=== PATIENT | female | born 1980 | race Caucasian/White ===

== ENCOUNTER 2019-01-05 13:27 | Outpatient (CLI) | payer SELFPAY ==
--- NOTE | 2019-01-05 13:15 | DI.RAD_ITS ---
SYMPTOMS/DIAGNOSIS: LEFT HAND PAIN X MOS, M79.642, LEFT POINTER PAIN X WEEKS LEFT HAND: There is no evidence of fracture. The joint spaces are well maintained. There are no significant degenerative changes. The bones are normally mineralized. No soft tissue calcifications or foreign bodies are seen. IMPRESSION: Negative left hand.
== END 2019-01-05 13:47 ==
PROVIDERS: PCP Nurse Practitioner; Visit Provider Nurse Practitioner
DX: M79.642 Pain in left hand (principal); M79.645 Pain in left finger(s)
CPT/HCPCS: 73130

== ENCOUNTER 2019-12-30 03:54 | Outpatient (CLI) | payer SELFPAY ==
[2019-12-30 14:37] LABS: Abs Immature Grans 0.06 10^3/uL (0.0-0.06); Absolute Lymphocyte Count 3.81 10^3/uL (1.2-3.4); Absolute Neutrophil Count 8.92 10^3/uL (1.2-6.7); Basophils % 0.4; Eosinophils % 1.8; HCT 43.2 % (36.0-46.0); HGB 14.6 g/dL (11.2-15.7); Immature Grans % 0.4; MCH 30.8 pg (27.0-33.0); MCHC 33.8 % (32.0-36.0); MCV 91.1 fL (80-95); MPV 9.7 fL (8.0-11.0); Monocytes % 7.2; Neutrophils % 63.2; Nucleated RBC 0 %; Platelet Count 331 10^3/uL (130-400); RBC 4.74 10^6/uL (3.93-5.22); RDW 12.5 % (11.7-14.6); RDW-SD 41.1 fL; WBC 14.11 10^3/uL (4.4-10.8)
[2019-12-30 14:39] LABS: Absolute Basophil Count 0.06 10^3/uL (0.0-0.2); Absolute Eosinophil Count 0.25 10^3/uL (0.0-0.7); Absolute Monocyte Count 1.02 10^3/uL (0.1-0.8)
== END 2019-12-30 04:14 ==
PROVIDERS: PCP Nurse Practitioner; Visit Provider Family Medicine
DX: R23.8 Other skin changes (principal)
CPT/HCPCS: 36415; 85025

== ENCOUNTER 2020-01-02 01:43 | Outpatient (CLI) | payer SELFPAY ==
--- NOTE | 2020-01-02 08:30 | DI.US_ITS ---
EXAM: US SOFT TISSUE EXTREMITY CLINICAL HISTORY: R/O hematoma, LT SHOULDER PAIN, M25.512. TECHNIQUE: Ultrasound was performed using standard protocol. COMPARISON: No exams were available for comparison FINDINGS: Sonographic assessment utilizing grayscale and color Doppler imaging was performed and targeted to th e area of clinical concern. Sonographically, no cystic or solid mass is seen in the soft tissues around the left shoulder. IMPRESSION: Negative ultrasound examination. No sonographic findings to suggest a hematoma. DATA REPOSITORY:
== END 2020-01-02 02:03 ==
PROVIDERS: PCP Nurse Practitioner; Visit Provider Family Medicine
DX: M25.512 Pain in left shoulder (principal)
CPT/HCPCS: 76881

== ENCOUNTER 2020-01-03 20:08 | Emergency (ER) | payer SELFPAY ==
[2020-01-03 20:17] VITALS: BP 133/78; PULSE 92; RESP 16; TEMP 36.8; O2SAT 98
--- NOTE | 2020-01-03 21:27 | W.ED.GENAD ---
Discharge Plan Disposition Patient Disposition: HOME Condition: Good Discharge Details Chief Complaint: Laceration Clinical Impression: Laceration of finger nail bed Primary Care Provider: Rosemary Torres ED Provider: Kayli Breen Home Meds and New Rx's Prescriptions: No Action No Known Home Meds RF: 0 Discharge Instructions Instructions: Finger Laceration (ED) Additional Instructions: Please keep your wound clean, dry, covered. Please keep the current dressing on for the next 24 hours. After that time, he may cover with a Band-Aid and then apply brace. Tylenol and ibuprofen as needed for discomfort. Please monitor for signs of infection bleeding redness, warmth, drainage, increased pain, fever/chills. If you develop these other new/worsening symptoms please seek care urgently once again. Otherwise, stitches should come out on their own in the next week. Please follow-up with primary care as needed. Referrals: Rosemary Torres, VB NET DEVELOPER [Primary Care Provider] - Discharge Data Discharge Date/Time-TO BE ENTERED AT DEPARTURE: 01/03/20 21:35 Medical Decision Making Patient is a pleasant [id number] 39-year-old female presented with chief complaint of laceration to the right middle finger. She reports a few hours prior to arrival she was working on a lawnmower when she slipped and her hand struck the blade. Denies any sensory deficits. Patient and I discussed risks/benedifs as well as expected procedural steps of closure. She voices udnertandind and wishes to proceed. Please see procedure note. This was completed using standard, sterile technique. Wound explored to base in a bloodless field. No FB or debris noted, deep structures intact. We discussed wound care in depth. Last tetanus was 2017. She will return in one week for wound check and suture removal. All of her questions and conerns were addressed, she is in agreemnt with this plan. HPI General Mode of arrival: ambulatory. Date/Time Provider Initiated Documentation: 01/03/20 21:27. Limitations to Documentation: no limitations. Information obtained by: patient and RN notes reviewed. History of Present Illness 39 year old F presents to the emergency department with the chief complaint of right middle finger laceration, described as severe, with intensity rated at 8. Quality is described as sharp, and is localized to the right and upper extremity. Patient reports no radiation. Patient started experiencing this hour(s) (3) and it has been constant. Immobilization improves symptom(s), Movement worsens symptoms . Patient notes no other symptoms.. Patient did receive the following treatments prior to arrival, none Related Data Home Medications Medication Instructions Recorded Confirmed Unknown [No Known Home Meds] 01/05/19 12/29/19 Allergies Allergy/AdvReac Type Severity Reaction Status Date / Time oxycodone HCl [From Percocet] AdvReac vomiting Verified 01/03/20 20:21 General Stated Complaint: Laceration REBA: 4 Review of Systems Constitutional Constitutional: Reports as per HPI, Denies chills and Denies fever(s) Musculoskeletal Musculoskeletal: Reports as per HPI Integumentary/Breasts Skin/Breast: Reports as per HPI Neurologic Neurologic: Reports as per HPI, Denies sensory deficit and Denies paresthesias [facility] Medical History Factor V Lieden (06/03/01) Fibromyalgia (Acute) Surgical History Cholecystectomy (06/03/03) Family History Mother No problems noted. Father Essential hypertension Social History Smoking/Tobacco Use Status: Never Alcohol Intake: never Drug use: Never Substance use type: does not use Do you feel safe at home: Yes Do you feel safe in your relationship?: Yes Exam Const General: cooperative, healthy appearing, comfortable, no acute distress and well developed Nutritional Appearance: average body habitus and well nourished Orientation: alert and awake Resp Effort & Inspection: normal respiratory effort, able to speak in complete sentences and no respiratory distress Cardio Rate: regular rate Rhythm: regular rhythm Skin Trauma: laceration Neuro General: patient alert and patient awake Cognition: normal cognition Speech: speech normal Gait: normal gait Sensory Exam: no sensory deficits noted Extrem Hand/finger images: 1. laceration through nail, nail is well approximated. Sensation intact. Good capillary refill. Nail easily comes up at the area of trauma, bleeding begins. Psych Appearance: grossly normal and well kempt Mental Status: mental status grossly normal Speech and Movement: speech and movement normal Course Vital Signs Vital signs: Vital Signs Temperature 36.8 C 09/01/20 20:17 Pulse 92 H 01/03/20 20:17 Respiratory Rate 16 01/03/20 20:17 Blood Pressure 133/78 01/03/20 20:17 Pulse Oximetry 98 01/03/20 20:17 Temperature 36.8 C 01/03/20 20:17 Temperature Source Skin 01/03/20 20:17 Pulse 92 H 01/03/20 20:17 Respiratory Rate 16 01/03/20 20:17 Respiratory Effort Non-Labored 01/03/20 20:29 Blood Pressure 133/78 01/03/20 20:17 Blood Pressure Position Supine 01/03/20 20:17 Pulse Oximetry 98 01/03/20 20:17 Oxygen Delivery Method Room Air 01/03/20 20:17 Oxygen Flow Rate 0 01/03/20 20:17 Pain Level 8 01/03/20 20:29 Procedures Laceration Laceration 1: Site: hand Size (cm): 1 Description: linear Depth: simple, single layer Local Anesthetic: Lidocaine 1% Amount of anesthesia used (mL): 5 Pre-repair: wound explored, irrigated extensively and deep structures intact Skin layer closed with: other (monocryl) Size (cm): 6-0 Number of sutures: 2 Technique: simple, interrupted
[2020-01-03] MEDS: Ibuprofen 600 MG TAB (21:34)
[2020-01-03] MEDS: Acetaminophen 500 MG TAB (21:34)
[2020-01-03 21:36] VITALS: PULSE 86; RESP 16; O2SAT 100
== END 2020-01-03 21:35 | disposition home or self-care (01) ==
PROVIDERS: Emergency Provider Physician Assistant; PCP Nurse Practitioner
DX: S61.312A Laceration without foreign body of right middle finger with damage to nail, initial encounter (principal); W27.1XXA Contact with garden tool, initial encounter
CPT/HCPCS: 12001

== ENCOUNTER 2020-01-21 21:34 | Emergency (ER) | payer SELFPAY ==
--- NOTE | 2020-01-21 21:37 | W.ED.GENAD ---
Discharge Plan Disposition Patient Disposition: HOME Condition: Good Discharge Details Clinical Impression: Right ankle sprain Primary Care Provider: Rosemary Torres ED Provider: Nicolas House Home Meds and New Rx's Prescriptions: New ibuprofen 600 mg tablet 600 mg PO Q8H PRNQty: 15 RF: 0 Discharge Instructions Instructions: Ankle Sprain (ED) Additional Instructions: X-ray does not reveal any fracture or dislocation. Wear the walking boot until follow-up with orthopedics. Call orthopedics for follow-up in 1 to 2 weeks. Ice, elevation for the next few days. Ibuprofen as needed for pain. Return to ED if problems. Referrals: [facility] [Provider Group] Medical Decision Making Patient took Advil and Tylenol before coming in. Will obtain x-ray of the right ankle. 22:00 - X-ray negative per my review and interpretation. Patient will be placed in a walking boot and made weightbearing as tolerated. Ice, elevation, ibuprofen. Follow-up with orthopedics in 1 to 2 weeks. Return to ED if problems. HPI General Mode of arrival: EMS. Date/Time Provider Initiated Documentation: 01/21/20 21:37. Limitations to Documentation: no limitations. Information obtained by: patient and RN notes reviewed. HPI Narrative: Patient presents to ED with right ankle [place]. She has pain in the right lateral ankle only. Has numbness and burning in the area of swelling only. Denies any other injury. Specifically, no foot or knee pain. Related Data Home Medications Medication Instructions Recorded Confirmed ibuprofen 600 mg PO Q8H PRN #15 tab 01/21/20 Previous Rx's Medication Instructions Recorded ibuprofen 600 mg PO Q8H PRN #15 tab 01/21/20 Allergies Allergy/AdvReac Type Severity Reaction Status Date / Time oxycodone HCl [From Percocet] AdvReac vomiting Verified 01/21/20 21:48 General REBA: 4 Review of Systems Constitutional Constitutional: Denies fever(s) and Denies weakness Cardiovascular Cardiovascular: Denies dyspnea Respiratory Respiratory: Denies cough and Denies dyspnea Musculoskeletal Musculoskeletal: Reports arthralgias, Reports joint swelling and Denies numbness Neurologic Neurologic: Denies numbness and Denies weakness [facility] Medical History (Updated 01/21/20 @ 22:05 by Nicolas House MD) Factor V Lieden (06/03/01) Fibromyalgia Surgical History Cholecystectomy (06/03/03) Family History Mother No problems noted. Father Essential hypertension Social History Smoking/Tobacco Use Status: Never Alcohol Intake: never Drug use: Never Substance use type: does not use Do you feel safe at home: Yes Do you feel safe in your relationship?: Yes Exam Const General: cooperative, comfortable and no acute distress Orientation: alert and oriented x3 HENIA Head: normocephalic and atraumatic Neck Neck: trachea midline and supple Resp Effort & Inspection: normal respiratory effort Skin Trauma: no lacerations or abrasions Wounds: no wounds Neuro General: patient alert, patient oriented x3 and no focal motor deficits Cranial Nerves: CN's II-XI intact bilaterally Extrem Other: Right ankle with significant swelling and tenderness to the lateral malleolus. Medial malleolus normal. Foot normal. Neurovascularly intact distally. No pain or tenderness to the proximal fibula.
[2020-01-21 21:42] VITALS: BP 138/87; PULSE 95; RESP 16; TEMP 37; O2SAT 98
--- NOTE | 2020-01-21 21:45 | DI.RAD_ITS ---
EXAM: XR ANKLE RT COMPLETE CLINICAL HISTORY: trauma. TECHNIQUE: 2D digital imaging was performed. COMPARISON: No exams were available for comparison FINDINGS: BONES: No acute fracture is present. No bony destructive lesion is seen. JOINTS: The ankle mortise is normally aligned. SOFT TISSUE: Soft tissue swelling laterally. IMPRESSION: No acute fracture or dislocation. Soft tissue swelling laterally. DATA REPOSITORY: RADIATION DOSE DELIVERED:
--- NOTE | 2020-01-21 21:59 | DI.VRAD_ITS ---
PROCEDURE INFORMATION: Exam: XR Right Ankle Exam date and time: 01/21/2020 9:54 PM Age: 39 years old Clinical indication: Pain; Ankle; Right; Patient HX: Trauma TECHNIQUE: Imaging protocol: XR Right ankle. Views: 3 or more views. COMPARISON: No relevant prior studies available. FINDINGS: Bones/joints: Normal. Soft tissues: Lateral soft tissue swelling. IMPRESSION: Lateral soft tissue swelling. Dictated and Authenticated by: Frank Gastelum MD. Ordering:JULIO Valenzuela MD
== END 2020-01-21 22:25 | disposition home or self-care (01) ==
PROVIDERS: Emergency Provider Emergency Medicine; PCP Nurse Practitioner
DX: S93.491A Sprain of other ligament of right ankle, initial encounter (principal); X50.9XXA Other and unspecified overexertion or strenuous movements or postures, initial encounter; Y93.01 Activity, walking, marching and hiking
CPT/HCPCS: 29515; 99283; 73610; L4361

== ENCOUNTER 2020-03-27 08:35 | Outpatient (CLI) | payer SELFPAY ==
[2020-03-29 19:42] LABS: Patient Race White; SARS-CoV-2 RNA Undetected (Undetected); SARS-CoV-2 Specimen Source Nasal
== END 2020-03-27 08:55 ==
PROVIDERS: PCP Nurse Practitioner; Visit Provider Nurse Practitioner
DX: R51.9 Headache, unspecified (principal); R09.81 Nasal congestion; M79.18 Myalgia, other site; Z11.59 Encounter for screening for other viral diseases
CPT/HCPCS: U0003

== ENCOUNTER 2020-05-17 16:55 | Outpatient (REF) | payer SELFPAY ==
[2020-05-18 21:38] LABS: COVID-19 RT-PCR UVMMC Result Negative (Negative)
== END 2020-05-17 17:15 ==
LOC: LBN 16:55
PROVIDERS: PCP Nurse Practitioner; Visit Provider Student in an Organized Health Care Education/Training Program
DX: Z11.52 Encounter for screening for COVID-19 (principal)
CPT/HCPCS: U0003

== ENCOUNTER 2021-11-01 09:44 | Emergency (ER) | payer MEDICAID, SELFPAY ==
[2021-11-01 09:46] VITALS: BP 136/84; PULSE 67; RESP 16; TEMP 36.7; O2SAT 99
[2021-11-01 09:50] VITALS: RESP 16
--- NOTE | 2021-11-01 10:00 | DI.US_ITS ---
Exam(s) US UPPER EXTREMITY VENOUS LT EXAM: US UPPER EXTREMITY VENOUS LT CLINICAL HISTORY: Arm pain with history of DVT and Leiden factor V TECHNIQUE: GRAYSCALE, COLOR, DOPPLER IMAGING OF THE VENOUS SYSTEM OF THE UPPER EXTREMITY-LEFT COMPARISON: No exams were available for comparison FINDINGS: Basilic vein: Patent. Normal color-flow and normal compression and augmentation properties. Brachial vein(s):Patent. Normal color flow. Normal compression and augmentation properties. Cephalic vein:Patent. Normal color flow. Normal compression and augmentation properties. Axillary vein: Patent. Normal color flow. Normal compression and augmentation properties. Visualized subclavian vein: Patent. No obvious intraluminal thrombus. IMPRESSION: 1. No evidence of venous thrombosis in the left upper extremity. 2. DATA REPOSITORY:
--- NOTE | 2021-11-01 10:05 | ED.GENADUL_ITS ---
Discharge Plan Disposition Patient Disposition: HOME Condition: Stable Discharge Details Clinical Impression: Left arm pain Primary Care Provider: Rosemary Torres ED Provider: Mark Ferrera Home Meds and New Rx's Prescriptions: Continued acetaminophen [Tylenol Extra Strength] 500 mg tablet 1,000 mg PO Q6H PRN ibuprofen 600 mg tablet 600 mg PO Q8H PRNQty: 15 0RF Discharge Instructions Instructions: Arm Pain (ED) Referrals: Rosemary Torres, PIE CRIMPING MACHINE OPERATOR [Primary Care Provider] - (As needed for reassessment or if not improving) Discharge Data Discharge Date/Time-TO BE ENTERED AT DEPARTURE: 11/01/21 13:57 Medical Decision Making Patient presenting to the emergency department for chief complaint of left arm pain. She reports that 1 day ago she started having some abnormal forearm pain that now has progressively worsened up to her shoulder and her left side of her neck. Patient states history of Leiden factor V with kidney thrombosis that has resolved and is not on daily anticoagulant. Patient attempted to call her primary care provider but they were unavailable to see her today so they informed her to come to the emergency department. Physical exam shows a stable 41-year-old female patient with slight anxiety. Physically to left upper extremity patient has slight anterior deltoid ecchymosis that is approximately 2 cm in diameter, tenderness to cervical musculature and trapezius of left great shoulder, tenderness to the left deltoid, tricep and bicep, and forearm. She does have a little bit of AC tenderness but otherwise exam is unremarkable. Given patient's history and high risk of clot we will plan on checking labs along with ultrasound of the left upper extremity but mostly suspect muscular injury of occult nature. Preliminary report with log data technician is that left upper extremity vascular exam and ultrasound is unremarkable for thrombosis. Discussed findings with patient along with conservative management of muscular pain. Also discussed return and follow-up precautions. After discussion of diagnosis and plan of care patient has no further needs, questions, or concerns and states clear understanding to return to the emergency department for any worsening symptoms. This documentation was generated using [employer] system, please disregard any oddities of phrase or misspellings. HPI General Mode of arrival: ambulatory . Date/Time Provider Initiated Documentation: 11/01/21 09:47 . Limitations to Documentation: no limitations . Information obtained by: patient and RN notes reviewed . History of Present Illness 41 year old F presents to the emergency department with the chief complaint of left arm pain , described as moderate, with intensity rated at 6. Quality is described as aching, and is localized to the left and upper extremity. Patient reports no radiation. Patient started experiencing this day(s) (1) and it has been constant. No relieving factors improve symptom(s), No exacerbating factors reported . Patient notes no other symptoms.. Patient did receive the following treatments prior to arrival, none Related Data Home Medications Medication Instructions Recorded Confirmed ibuprofen 600 mg tablet 600 mg PO Q8H PRN #15 tabs 01/21/20 11/01/21 acetaminophen 500 mg tablet 1,000 mg PO Q6H PRN 09/27/20 11/01/21 (Tylenol Extra Strength) Previous Rx's Medication Instructions Recorded ibuprofen 600 mg tablet 600 mg PO Q8H PRN #15 tabs 01/21/20 Allergies Allergy/AdvReac Type Severity Reaction Status Date / Time codeine AdvReac Intermediate Headache Verified 11/01/21 09:52 oxycodone HCl [From Percocet] AdvReac vomiting Verified 11/01/21 09:52 General Stated Complaint: Vascular REBA: 3 Review of Systems Constitutional Constitutional: Denies chills and Denies fever(s) ENT Ears, Nose, Mouth, and Throat: Reports neck pain Cardiovascular Cardiovascular: Denies chest pain, Denies syncope, Denies leg ulcers, Denies leg edema and Denies dyspnea Respiratory Respiratory: Denies dyspnea Musculoskeletal Musculoskeletal: Reports as per HPI, Denies joint swelling, Denies muscle weakness, Reports neck pain and Reports radiating pain into limb Integumentary/Breasts Skin/Breast: Reports unusual bruising Neurologic Neurologic: Denies syncope and Denies paresthesias PFSH All Active Problems (Updated 11/01/21 @ 13:43 by Mark Ferrera NP) Left arm pain (Acute) Sinusitis (Acute) Back pain (Acute) Left hand pain (Acute) Fibromyalgia (Acute) Medical History (Updated 11/01/21 @ 13:43 by Mark Ferrera NP) Factor V Lieden (06/03/01) Surgical History Cholecystectomy (06/03/03) Family History Mother No problems noted. Father Essential hypertension Social History Smoking/Tobacco Use Status: Current every day Tobacco Type: cigarettes Smoking risk assessment performed?: Yes Alcohol Intake: never Drug use: Never Substance use type: does not use Current gender identity: female Do you feel safe at home: Yes Do you feel safe in your relationship?: Yes Exam Const General: cooperative, no acute distress and not ill appearing Orientation: alert, awake and oriented x3 HENMT Mouth: moist mucous membranes Resp Effort & Inspection: normal respiratory effort, able to speak in complete sentences and no respiratory distress Auscultation: clear to auscultation bilaterally Cardio Rate: regular rate Rhythm: regular rhythm Heart Sounds: S1 normal and S2 normal Back/Spine/Pelvis Cervical Spine: cervical ROM normal and cervical muscular tenderness Skin General skin exam: no rashes or lesions noted Neuro General: patient alert, patient awake, patient oriented x3, moves all extremities and no focal motor deficits Sensory Exam: no sensory deficits noted Extrem General: capillary refill normal and normal exam except as noted Left upper extremity: shoulder/upper arm Details: tenderness Location: of the proximal humerus and over the deltoid bursa, axillary nerve sensory function normal and ecchymosis shoulder proximal anterior Details: single; no swelling, elbow/forearm Details: tenderness Location: of the antercubital fossa, of the mid-shaft forearm and of the proximal forearm, normal ROM and distal pulses intact; no swelling, no unusual warmth, no abrasions and no ecchymosis, wrist Details: normal to inspection and hand Details: normal to inspection, normal capillary refill and vascular exam Details: radial pulse present and normal capillary refill Course Vital Signs Vital signs: Vital Signs Temperature 36.7 C 11/01/21 09:46 Pulse 67 11/01/21 09:46 Respiratory Rate 16 11/01/21 09:46 Blood Pressure 136/84 11/01/21 09:46 Pulse Oximetry 99 11/01/21 09:46 Temperature 36.7 C 11/01/21 09:46 Temperature Source Temporal Artery Scan 11/01/21 09:46 Pulse 67 11/01/21 09:46 Respiratory Rate 16 11/01/21 09:50 Respiratory Effort Non-Labored 11/01/21 09:50 Respiratory Depth Normal 11/01/21 09:50 Respiratory Pattern Normal 11/01/21 09:50 Blood Pressure 136/84 11/01/21 09:46 Blood Pressure Position Sitting 11/01/21 09:46 Pulse Oximetry 99 11/01/21 09:46 Oxygen Delivery Method Room Air 11/01/21 09:46 Oxygen Flow Rate 0 11/01/21 09:46 Pain Level 6 11/01/21 09:50 PAWSS Have you Been Recently Intoxicated or Drunk Within the Last 30 days?: No Have you Ever Experienced Previous Episodes of Alcohol Withdrawal?: No Have you ever Experienced Withdrawal Seizures?: No Have you ever Experienced Delirium Tremens(DT)s?: No Have you ever undergone Alcohol Rehabilitation Treatment (i.e, inpt ot o utpatient treatment programs)?: No Have you ever Experienced Blackouts?: No Have you ever Combined Alcohol with other Downers within the last 90 days?: No Have you ever Combined Alcohol with any other Substance of Abuse during the last 90 days?: No Result: 0
[2021-11-01 10:21] LABS: Abs Immature Grans 0.04 10^3/uL (0.0-0.06); Absolute Basophil Count 0.05 10^3/uL (0.0-0.2); Absolute Eosinophil Count 0.34 10^3/uL (0.0-0.7); Absolute Monocyte Count 0.83 10^3/uL (0.1-0.8); Absolute Neutrophil Count 6.05 10^3/uL (1.2-6.7); Basophils % 0.5; Eosinophils % 3.4; HCT 44.5 % (36.0-46.0); HGB 14.9 g/dL (11.2-15.7); Immature Grans % 0.4; Lymphocytes % 27.7; MCH 29.7 pg (27.0-33.0); MCHC 33.5 % (32.0-36.0); MCV 89 fL (80-95); MPV 9.6 fL (8.0-11.0); Monocytes % 8.2; Neutrophils % 59.8; Platelet Count 320 10^3/uL (130-400); RBC 5.01 10^6/uL (3.93-5.22); RDW 12.5 % (11.7-14.6); RDW-SD 40.9 fL; WBC 10.11 10^3/uL (4.4-10.8)
[2021-11-01 10:38] LABS: PTT Activated 25.5 sec (21.0-27.5); Prothrombin Time 9.7 sec (9.3-11.0)
[2021-11-01 10:39] LABS: ALT 29 U/L (14-59); AST 15 U/L (15-37); Alkaline Phosphatase 79 U/L (46-116); Anion Gap 7.6 mmol/L (3-11); BUN 10 mg/dL (7-18); Bilirubin, Total 0.2 mg/dL (0.2-1.0); CO2 25.4 mmol/L (21.0-32.0); CREATININE 0.9 mg/dL (0.55-1.02); Calcium 9.1 mg/dL (8.5-10.1); Chloride 103 mmol/L (98-107); Glucose 113 mg/dL (74-106); Magnesium 1.9 mg/dL (1.8-2.4); Potassium 4.2 mmol/L (3.5-5.1); Sodium 136 mmol/L (136-145); Total Protein 7.4 g/dL (6.4-8.2); Troponin I < 50 ng/L (<or=60)
== END 2021-11-01 13:57 | disposition home or self-care (01) ==
PROVIDERS: Emergency Provider Nurse Practitioner Family; PCP Nurse Practitioner
DX: M79.602 Pain in left arm (principal); R58 Hemorrhage, not elsewhere classified; F41.9 Anxiety disorder, unspecified; F17.210 Nicotine dependence, cigarettes, uncomplicated
CPT/HCPCS: 36415; 80053; 99284; 83735; 84484; 85025; 85610; 85730; 93971; 99282

== ENCOUNTER → 2023-01-30 01:44 | Outpatient (CLI) | payer MEDICAID, SELFPAY ==
--- NOTE | 2023-01-30 08:30 | DI.MAMMO_ITS ---
Exam(s) MAMMO SCREENING EXAM: MAMMO SCREENING CLINICAL HISTORY: SCREENING, Z12.39. TECHNIQUE: Bilateral full field digital CC and MLO mammographic images were obtained with 3D tomosyn thesis and utilizing computer aided detection (CAD). COMPARISON: Baseline FINDINGS: The fibroglandular tissue is moderately dense, this somewhat decreasing the sensitivity mammogram for finding hidden underlying lesions. There are no CAD designations. There are no significant focal findings in the right breast. In the lateral aspect of the left breast there is an asymmetric density-possible nodule located 8 cm in from the nipple on the MLO view and measuring approximately 9 x 7 mm. Spot compression view and u ltrasound recommended There are no malignant-appearing microcalcification groups in this region or elsewhere in either [address] There is no significant architectural distortion nor skin thickening-retraction. IMPRESSION: 1. No radiographic evidence of malignancy in the right breast. 2. Possible left breast nodule. Spot compression MLO view and breast ultrasound recommended. BI-RADS Category 0 - Assessment Incomplete: Need additional imaging evaluation Breast Density - Category C - Heterogeneously dense Breast density Category C or D implies that the patient has dense breast tissue. Dense breast tissue can make it harder to find cancer on a mammogram. Dense breast tissue is also associated with an incr eased risk of breast cancer. This information about the result of the mammogram report was provided to the patient to raise their awareness. Use this report when you speak with the patient about their risks for breast cancer, which includes their family history. At that time, you may recommend additional screening tests (Ultrasoun d or MRI) as these tests may add significant information. A negative radiographic report should not delay biopsy if a dominant or clinically suspicious mass is present. Up to ten percent of cancers are not identified on mammography. A negative report may reinforce clinical impression. Adenosis and dense breasts may obscure an underlying neoplasm. False positive reports average 6 to 10%. Patient will receive a letter notifying them of these results.
== END ==
PROVIDERS: PCP Nurse Practitioner; Visit Provider Nurse Practitioner
DX: Z12.31 Encounter for screening mammogram for malignant neoplasm of breast (principal)
CPT/HCPCS: 77063; 77067

== ENCOUNTER → 2023-02-04 02:29 | Outpatient (CLI) | payer MEDICAID, SELFPAY ==
--- NOTE | 2023-02-04 | DI.US_ITS ---
Exam(s) MG MAMMO SCREEN CALL BACK UNI US BREAST LT COMPLETE EXAM: MG MAMMO SCREEN CALL BACK UNI-LEFT AND COMPLETE LEFT BREAST ULTRASOUND CLINICAL HISTORY: F/U MAMMO, POSSIBLE LT BREAST NODULE. TECHNIQUE: Unilateral spot mammographic images obtained with 3D tomosynthesisand utilizing computer aided detection (CAD). . Complete LEFT breast Ultrasound was also performed, including all 4 quadrants, the retroareolar regio n, and the ipsilateral axilla. COMPARISON: Prior mammograms were reviewed. This additional imaging was performed due to findings described on the recent BASELINE screening mammogram of 01/30/2023. FINDINGS: DIAGNOSTIC MAMMOGRAM: Additional mammographic views performed todayrender this area less concerning. COMPLETE LEFT BREAST ULTRASOUND: Ultrasound performed today reveals no evidence of solid or significant cystic lesions in all 4 quadra nts.. Scanning of the ipsilateral axilla reveals no significant adenopathy. IMPRESSION: 1. No radiographic evidence of malignancy in left breast. 2. Negative complete left breast ultrasound Appropriate follow-up is to keep this patient on a yearly mammogram schedule, with earlier imaging i f a self detected breast change is noted. The patient was informed of these findings and recommendations by myself prior to leaving the depart ent today. BI-RADS Category 2 - Benign Findings Breast Density - Category C - Heterogeneously dense Breast density Category C or D implies that the patient has dense breast tissue. Dense breast tissue can make it harder to find cancer on a mammogram. Dense breast tissue is also associated with an incr eased risk of breast cancer. This information about the result of the mammogram report was provided to the patient to raise their awareness. Use this report when you speak with the patient about their risks for breast cancer, which includes their family history. At that time, you may recommend additional screening tests (Ultrasoun d or MRI) as these tests may add significant information. A negative radiographic report should not delay biopsy if a dominant or clinically suspicious mass is present. Up to ten percent of cancers are not identified on mammography. A negative report may reinforce clinical impression. Adenosis and dense breasts may obscure an underlying neoplasm. False positive reports average 6 to 10%. Patient will receive a letter notifying them of these results.
--- NOTE | 2023-07-13 17:44 | DI.RAD_ITS ---
Exam(s) XR ANKLE LT COMPLETE EXAM: XR ANKLE LT COMPLETE CLINICAL HISTORY: M79.673 ankle injury, fall. TECHNIQUE: 2D digital imaging was performed. COMPARISON: No exams were available for comparison FINDINGS: 3 views No evidence of fracture or widening of the ankle mortise. Talar dome unremarkable. Bone density nor mal. No osseous lesions. No osseous tarsal coalition. Accessory ossicle noted lateral to the cuboi d bone. IMPRESSION: No acute osseous findings in the ankle. DATA REPOSITORY: RADIATION DOSE DELIVERED:
--- NOTE | 2023-07-13 17:45 | DI.RAD_ITS ---
Exam(s) XR FOOT LT COMPLETE EXAM: XR FOOT LT COMPLETE CLINICAL HISTORY: M79.673 foot pain, injury. TECHNIQUE: 2D digital imaging was performed. COMPARISON: No exams were available for comparison FINDINGS: 3 views No evidence of fracture or diastasis of the Lisfranc joint. Bone density normal. No osseous lesions no pes planus. Small calcification on the lateral aspect of the foot is probably an accessory ossic le lateral to the cuboid bone related to the peroneus longus tendon. Accessory ossicle on the medial aspect of the foot is also noted proximal to the navicular tuberosity. No degenerative changes. No erosions. IMPRESSION: No acute osseous findings in the foot. DATA REPOSITORY: RADIATION DOSE DELIVERED:
--- NOTE | 2023-07-13 18:11 | DI.VRAD_ITS ---
PROCEDURE INFORMATION: Exam: XR Left Ankle Exam date and time: 07/13/2023 5:37 PM Age: 43 years old Clinical indication: Other: Ankle pain after fall TECHNIQUE: Imaging protocol: Radiologic exam of the left ankle. Views: 3 or more views. COMPARISON: CR XR FOOT LT COMPLETE 07/13/2023 5:35 PM FINDINGS: Bones/joints: Chronic ossicle adjacent to the cuboid bone. No acute fracture or dislocation. Soft tissues: Normal. IMPRESSION: No acute findings. Dictated and Authenticated by: Barber Garcia MD. Ordering:REGULO Rizo MD
--- NOTE | 2023-07-13 18:11 | DI.VRAD_ITS ---
PROCEDURE INFORMATION: Exam: XR Left Foot Exam date and time: 07/13/2023 5:35 PM Age: 43 years old Clinical indication: Other: Foot pain after injury TECHNIQUE: Imaging protocol: Radiologic exam of the left foot. Views: 3 or more views. COMPARISON: US SOFT TISSUE EXTREMITY 01/02/2020 1:53 PM FINDINGS: Bones/joints: Chronic ossicle adjacent to the cuboid bone. No acute fracture or dislocation Soft tissues: Normal. IMPRESSION: No acute findings. Dictated and Authenticated by: Barber Garcia MD. Ordering:REGULO Rizo MD
== END ==
PROVIDERS: PCP Nurse Practitioner; Visit Provider Nurse Practitioner
DX: Z12.31 Encounter for screening mammogram for malignant neoplasm of breast (principal); R92.8 Other abnormal and inconclusive findings on diagnostic imaging of breast
CPT/HCPCS: 76642; 77063; 77067

== ENCOUNTER → 2023-07-13 17:20 | Outpatient (CLI) | payer MEDICAID, SELFPAY | PROVIDERS: PCP Nurse Practitioner; Visit Provider Physician Assistant | DX: M25.572 Pain in left ankle and joints of left foot | CPT/HCPCS: 73610; 73630 ==